=== PATIENT | female | born 1940 | race Two or more races ===

== ENCOUNTER → 2024-10-06 | Outpatient (CLI) | payer MEDICARE, OTHER, SELFPAY ==
[2024-10-06 17:39] LABS: Basophils % (Auto) 0 % (0-2.5); Eosinophils # (Auto) 0.1 Thou/mm3 (0.0-0.5); Eosinophils % (Auto) 1 % (0-10); Hematocrit 32.2 % (36.0-46.0); Hemoglobin 11.1 g/dL (12.0-16.0); Immature Granulocytes % (Auto) 0 % (0-0); Immature Granulocytes Auto 0.01 Thou/mm3 (0.00-0.00); Lymphocytes # (Auto) 1.2 Thou/mm3 (1.0-4.8); Lymphocytes % (Auto) 27 % (10-50); Mean Corpuscular HGB Conc 34.5 g/dl (31.0-37.0); Mean Corpuscular Hemoglobin 31.3 pg (25.0-35.0); Mean Corpuscular Volume 91 fL (80-100); Monocytes # (Auto) 0.4 Thou/mm3 (0.0-0.8); Monocytes % (Auto) 8 % (0-12); Neutrophils # (Auto) 2.9 Thou/mm3 (1.8-7.7); Neutrophils % (Auto) 63 % (37-80); Nucleated Red Blood Cell % 0 /100 WBC (0); Platelet Count 178 Thou/mm3 (140-440); RDW Standard Deviation 43.6 fL (36.4-46.3); Red Blood Count 3.55 Miln/mm3 (4.00-5.20); White Blood Count 4.6 Thou/mm3 (3.6-11.0)
[2024-10-06 17:54] LABS: INR 1.1 (0.9-1.3); Partial Thromboplastin Time 28.8 Seconds (22.0-36.0); Prothrombin Time 11.5 Seconds (9.0-12.2)
[2024-10-06 17:57] LABS: Anion Gap 8 (7-16); BUN/Creatinine Ratio 17 Ratio (12-20); Blood Urea Nitrogen 15 mg/dL (9-23); Calcium 8.8 mg/dL (8.3-10.6); Carbon Dioxide 26.4 mMol/L (20.0-31.0); Chloride 99 mMol/L (98-107); Creatinine (Component) 0.9 mg/dL (0.6-1.3); Glucose 108 mg/dL (74-106); Osmolality,Calculated 268 (275-295); Potassium 3.6 mMol/L (3.4-5.1); Sodium 133 mMol/L (136-145); eGFR > 60 See Note
== END | disposition home or self-care (01) ==
PROVIDERS: PCP Internal Medicine; Referring Provider Internal Medicine; Visit Provider Internal Medicine
DX: I25.10 Atherosclerotic heart disease of native coronary artery without angina pectoris (principal); I48.91 Unspecified atrial fibrillation
CPT/HCPCS: 36415; 80048; 85025; 85610; 85730

== ENCOUNTER 2024-10-11 16:08 | Observation (INO) | payer MEDICARE, OTHER, SELFPAY ==
[2024-10-11 16:12] VITALS: BP 106/64; PULSE 70; RESP 18; TEMP 36.7; O2SAT 95
--- NOTE | 2024-10-11 16:42 | EDNOTE_ITS ---
ED General RME/HPI General Stated complaint: LIP HEMATOMA Time Seen by Provider: 10/11/24 16:29 Arrival date/time: 10/11/24 16:08 RME / HPI RME / HPI narrative: 84-year-old female patient with significant history of hypertension was sent to us by Dr. Bourgeois, home demonstrator, for possible admission regarding left groin hematoma after patient underwent angiogram 9:00 this morning. Patient was also noted to be hypotensive while in the facility. Patient denies any pain. Denies any chest pain. Denies any other complaints. Patient is not taking any blood thinner. Review of Systems Review of Systems Narrative Review of Systems: Review of system reviewed and within normal limits except mentioned in HPI ED Exam Narrative Physical exam: VITAL SIGNS: Reviewed. GENERAL APPEARANCE: Alert and interactive, follows commands, no acute distress, HEAD AND FACE: Non-traumatic. ENT: PERRL, pink conjunctivitis, eyelid no trauma, Mucous membrane moist. NECK: Supple, nontender, no nuchal rigidity. CHEST: No tenderness, no crepitus, no paradoxical movement, no retractions. LUNGS: Clear, well ventilated, symmetric, no rales, no wheezing, no ronchi, no stridor, good breath sounds bilaterally. HEART: Regular rate, regular rhythm, no murmur, no gallops. ABDOMEN: Soft, positive bowel sounds, nondistended, no guarding, nontender, no rebound, no masses, RECTAL: Deferred. GENITAL: Deferred. NEUROLOGICAL: Gross motor function intact sensory function intact, Appropriate for age. MUSCULOSKELETAL: low back nontender, full range of motion. EXTREMITIES: Left groin hematoma, diffuse hematoma, swelling, nontender, full range of motion. SKIN: Color pink, dry, no rash, no lacerations, no abrasions, no contusions. LYMPHATICS: Deferred. Course Quality Measures none Orders Category Date Time Status COVID-19 Screening Questionnaire NOW Care 10/11/24 17:10 Active Decision to Admit X1 Care 10/11/24 17:10 Active Consult to Cardiology Stat Cons 10/11/24 17:11 Ordered CBC [CBC] Stat Lab 10/11/24 16:41 Ordered CMP [Comprehensive Metabolic Panel] Stat Lab 10/11/24 16:41 Ordered PT [Prothrombin Time with INR] Stat Lab 10/11/24 16:41 Ordered PTT [Partial Thromboplastin Time] Stat Lab 10/11/24 16:41 Ordered Vital Signs Vital signs: Vital Signs Temperature 98.0 F 10/11/24 16:12 Pulse Rate 70 10/11/24 16:12 Respiratory Rate 18 10/11/24 16:12 Blood Pressure 106/64 10/11/24 16:12 Pulse Oximetry (%) 95 10/11/24 16:12 Oxygen Delivery Method Room Air 10/11/24 16:12 MDM Patient data External records reviewed:: None Clinical information provided by:: patient Social determinants that could affect healthcare access:: none Patient has the following chronic illnesses:: Hypertension How is presenting disease/condition affected by chronic disease/condition?: exacerbated by Evaluation data The following diagnostics were reviewed and interpreted by me:: lab results Lab and/or radiology exams considered but not ordered:: None Interpretation Summary: Laboratory workup came back unremarkable. Medications Medications considered but not ordered:: none Medication administrations:: None Consultations Consultation(s) initiated? (list below): No Diagnosis Differential Diagnosis ED Complaint MDM: Left groin hematoma status post angiogram, anemia Most likely diagnosis given after review of the tests above:: Left groin hematoma, status post lateral Admission Indicated Admission indicated?: indicated Explain why admission is indicated or not indicated:: Stable Admission Request Was there a request for admission?: Yes Admission Attestation Admission request attestation: Discussed case with [ Dr Olivares] from Hospitalist service regarding admission. Discussed patients ED course, exam findings, labs, and radiology results. The Hospitalist [agrees] to accept the patient for admission. Disposition Plan Disposition Plan: Admit Medical Decision Making MDM Narrative MDM Narrative: 84-year-old female patient with significant history of hypertension was sent to us by Dr. Bourgeois, home demonstrator, for possible admission regarding left groin hematoma after patient underwent angiogram 9:00 this morning. Patient was also noted to be hypotensive while in the facility. Patient denies any pain. Denies any chest pain. Denies any other complaints. Patient is not taking any blood thinner. I spoke with Dr. Bourgeois, home demonstrator, and told me to asked the hospitalist admit the patient for observation regarding worsening left groin hematoma status post angiogram this morning. Was also noted to be hypotensive while in the facility. Differential Diagnosis Differential Diagnosis: Left groin hematoma status post angiogram, anemia Discharge Plan Plan Patient Disposition: Admit Acute Care w/in Hospital Problem List Clinical Impression: Hematoma of left inguinal region, Status post coronary angiogram Patient/Caregiver Discharge Instructions Print Language: Qatari Stand Alone Forms: Salma Award Info., Patient Portal Info Letter
--- NOTE | 2024-10-11 17:21 | PD.IMCONS ---
HPI Consult Narrative History of present illness: 84 year old F with boarder line HTN / PVD pt had peripheral anigiorgam via the L femoral artery and interventions post pocedure she developed L groin hematoma hemostasis achieved with fem-stop pt was admitted for observation cc:: cc: Exam Vital Signs Temp Pulse Resp BP Pulse Ox O2 Del Method 98.0 F 70 18 106/64 95 Room Air 10/11/24 16:12 10/11/24 16:12 10/11/24 16:12 10/11/24 16:12 10/11/24 16:12 10/11/24 16:12 Narrative Exam L gron has soft hematoma no active bleeding Assessment and Plan Assessment and plan (1) Hematoma of left inguinal region: Status: Acute (2) PVD (peripheral vascular disease): Status: Acute (3) Peripheral vascular angioplasty status: Status: Acute Additional Assessment & Plan Additional Plan: pt developed L groin hematoma currentyly hemodynamically stable hemostasis achieved with fem-stop will monitor H/H L groin u/s tomorrow
[2024-10-11 17:46] VITALS: BMI 26.7
--- NOTE | 2024-10-11 17:47 | ESHP_ITS ---
<Statement entered by Blanche Olivares MD - 10/13/24 05:26> Patient was seen and examined by me personally. I have directly supervised and reviewed documentation by the team resident and agree with its findings with any exceptions or additional findings as below. Plan of care was discussed with the attending, Dr. Medina. Patient is a 84-year-old female with past medical history of hypertension, hyperlipidemia, bladder prolapse status post pessary, history of hemoptysis who presents following left sided leg angiogram performed by Dr. Bourgeois. She developed a hematoma in the left groin post-procedure thus was sent by Dr. Bourgeois for admission for overnight observation. Will order US in the morning and follow Hgb level. If stable will plan to discharge tomorrow morning. Blanche Olivares, PGY-2 Documentation for date of: 10/11/24 HPI History of Present Illness Chief complaint: Hematoma s/p angiogram History of present illness: 84-year-old female with past medical history of hypertension, hyperlipidemia, bladder prolapse status post pessary, history of hemoptysis followed by civil litigation attorney Dr. Cervantes presenting to the ED after completing an angiogram for peripheral artery disease with Dr. Bourgeois. Patient apparently had a complication of hematoma formation after the angiogram procedure and Dr. Bourgeois is requesting that we admit the patient for observation and monitor hematoma along with patient's hemoglobin. Patient denies having any concerning symptoms at this time; moreover, no chest pain/tightness, abdominal pain, melena, hematochezia, dysuria, left extremity weakness or pain. Patient apparently was having difficulty ambulating at home but denies having any pain prior to having the angioplasty; moreover, Dr. Bourgeois had completed angioplasty a year prior on the right extremity without any complications. Patient also follows radiologist outpatient and apparently she does not have any reported cardiac disease. Regarding the hemoptysis, patient had 1 episode about a year ago and follows Dr. Cervantes. Patient's bedside states that she does have a pulmonary nodule that was believed to be potentially TB but that has been ruled out. Dr. Cervantes follows up with the patient and periodically repeats imaging for the pulmonary nodule Medical history: As stated above Surgical history: Molar tooth extraction, appendectomy 25 years ago Allergies: NKDA Medications: Patient is on atorvastatin (unsure exact dosage), was on hydrochlorothiazide 12.5 mg p.o. 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 ROS: All 12 systems assessed and the patient denies unless otherwise stated in HPI In the ED, patient is normotensive, regular heart rate, respiratory rate of 18 and afebrile satting 95 on room air. Pending labs which were ordered after decision was made to admit this patient. Patient will be admitted for observation to monitor for change in hemoglobin and to assess hematoma with ultrasound on the following day. Exam Vital Signs Temp Pulse Resp BP Pulse Ox O2 Del Method 98.0 F 70 18 106/64 95 Room Air 10/11/24 16:12 10/11/24 16:12 10/11/24 16:12 10/11/24 16:12 10/11/24 16:12 10/11/24 16:12 Narrative Exam Physical Exam: GENERAL: Awake, answering questions appropriately, appears stated age HEENT: NC/AT. Moist mucosa. PERRLA/EOMI. CARDIO: Heart RRR, no obvious murmurs, no JVD. PULM: No coughing or visible SOB. Lungs CTA B/L. GI: Abdomen soft, NT/ND, +BS. URO/BELT PICKER: +Howard catheter draining yellow urine (placed during the procedure; will remove on 10/12) SKIN/MSK/EXT: Left groin site bandaged with no oozing. No discoloration/rashes/edema/amputations. +Pedal pulses present B/L. NEURO: Oriented x3,Moves extremities x4, no focal neurologic deficits noted Results: Labs 10/12/24 04:45 10/12/24 04:45 Quality Measures Quality Measures none Advance care planning discussed with:: patient and spouse Medications Home Medications and Allergies Allergies Allergy/AdvReac Type Severity Reaction Status Date / Time codeine Allergy Severe Hives Verified 10/11/24 17:54 Visit Medications Acetaminophen (Acetaminophen 325 Mg Tablet) 650 mg PO Q6H PRN PRN Reason: Pain 1-3 and/or Fever >100.1 Stop: 11/10/24 17:40 Ondansetron HCl (Ondansetron Inj 2 Mg/Ml Inj 2 Ml) 4 mg IV Q6H PRN; Protocol PRN Reason: NAUSEA OR VOMITING Stop: 11/10/24 17:40 Sennosides (Senna Tablet) 1 tab PO QDAY PRN; Protocol PRN Reason: constipation Stop: 11/10/24 17:40 Assessment & Plan Plan 84-year-old female with past medical history of hypertension, hyperlipidemia, bladder prolapse status post pessary, history of hemoptysis followed by civil litigation attorney Dr. Cervantes presenting to the ED after completing an angiogram for peripheral artery disease with Dr. Bourgeois will be admitted for observation to monitor for change in hemoglobin and to assess hematoma with ultrasound on the following day. #Hematoma, secondary to angioplasty Patient is presenting after she had a scheduled angioplasty with Dr. Bourgeois on 9 AM Patient developed a left groin hematoma but hemostasis was achieved with Fem- Stop per Dr. Bourgeois's note On exam, patient is awake and in no distress; left groin hematoma site is not bleeding Dr. Bourgeois on board, appreciate recommendations Plan: Bedrest Monitor hemoglobin/hematocrit with morning labs Ultrasound L groin to monitor for the hematoma on 10/12 Tylenol for pain as needed Zofran for nausea as needed #Hypertension #Hyperlipidemia #Bladder prolapse status post pessary #History of hemoptysis with pulmonary nodule Chronic medical conditions not pertinent to the following presentation Hospital Management: Lines: PIV, Howard Bowel: Senna as needed Diet: Regular GI prophylaxis: Not needed DVT prophylaxis: SCD Dispo: Will monitor hemoglobin and repeat ultrasound to recheck hematoma Code: Full Patient seen and assessed with attending Dr. Medina and senior resident Dr. Marshall Frederick, PGY-1 Attending Provider Attestation/Addendum Krista, Bianca Medina, DO, attest that I was physically present for the hernandez portions of the service and evaluated the patient with the resident and I reviewed and discussed the case with the resident and agree with the resident's findings and plans of care as documented above Patient is an 84-year-old female with past medical history of hypertension, hyperlipidemia, bladder prolapse, peripheral arterial disease who was brought to the ED after patient underwent an outpatient angiogram. She was noted to develop ecchymosis over her right proximal thigh concerning for hematoma versus pseudoaneurysm. It is requested by the radiologist to further observe patient overnight and monitor H&H. Patient does have some mild edema, ecchymosis and tenderness to palpation over the right inguinal region. Will karl the affected area and obtain an ultrasound arterial in a.m. to rule out pseudoaneurysm. Case was discussed with cardiology in the ED. Will admit patient to med/surge for further observation. If H&H is stable and no pseudoaneurysm found on ultrasound, plan for discharge in a.m.
[2024-10-11 17:55] VITALS: BP 138/73; PULSE 87; RESP 16; TEMP 36.8; O2SAT 100
[2024-10-11 18:17] LABS: Basophils % (Auto) 0 % (0-2.5); Eosinophils # (Auto) 0.1 Thou/mm3 (0.0-0.5); Eosinophils % (Auto) 1 % (0-10); Hematocrit 26.4 % (36.0-46.0); Immature Granulocytes % (Auto) 0 % (0-0); Immature Granulocytes Auto 0.02 Thou/mm3 (0.00-0.00); Lymphocytes # (Auto) 1.2 Thou/mm3 (1.0-4.8); Lymphocytes % (Auto) 22 % (10-50); Mean Corpuscular HGB Conc 34.1 g/dl (31.0-37.0); Mean Corpuscular Volume 91 fL (80-100); Monocytes # (Auto) 0.6 Thou/mm3 (0.0-0.8); Monocytes % (Auto) 11 % (0-12); Neutrophils # (Auto) 3.7 Thou/mm3 (1.8-7.7); Neutrophils % (Auto) 66 % (37-80); Nucleated Red Blood Cell % 0 /100 WBC (0); Platelet Count 157 Thou/mm3 (140-440); RDW Standard Deviation 44.2 fL (36.4-46.3); White Blood Count 5.6 Thou/mm3 (3.6-11.0)
[2024-10-11 18:31] VITALS: BP 113/59; PULSE 66; RESP 18; TEMP 36.8; O2SAT 96
[2024-10-11 18:38] LABS: Alanine Aminotransferase 11 U/L (10-49); Albumin, Serum 3.4 gm/dL (3.4-4.8); Albumin/Globulin Ratio 1.4 (1.2-2.2); Alkaline Phosphatase 53 U/L (46-116); Anion Gap 7 (7-16); Aspartate Amino Transferase 20 U/L (0-34); BUN/Creatinine Ratio 21 Ratio (12-20); Bilirubin,Total 0.6 mg/dL (0.3-1.2); Blood Urea Nitrogen 15 mg/dL (9-23); Calcium 8.3 mg/dL (8.3-10.6); Calcium (Corrected) 8.8 mg/dL (8.5-10.1); Carbon Dioxide 24.4 mMol/L (20.0-31.0); Chloride 108 mMol/L (98-107); Creatinine (Component) 0.7 mg/dL (0.6-1.3); Globulin 2.4 gm/dL (2.3-3.5); Glucose 95 mg/dL (74-106); Osmolality,Calculated 278 (275-295); Potassium 3.5 mMol/L (3.4-5.1); Sodium 139 mMol/L (136-145); Total Protein 5.8 gm/dL (5.7-8.2); eGFR > 60 See Note
[2024-10-11 18:41] LABS: INR 1.1 (0.9-1.3); Partial Thromboplastin Time 27.1 Seconds (22.0-36.0); Prothrombin Time 11.5 Seconds (9.0-12.2)
[2024-10-11 21:00] VITALS: BP 130/72; PULSE 67; RESP 12; O2SAT 100
--- NOTE | 2024-10-11 21:08 | PC.NURSE ---
Pt provided with sandwich, juice, crackers. Tolerated well. Lights dimmed for pt comfort. Pt denies any pain or other complaints/concerns at this time.
[2024-10-11 23:13] VITALS: BMI 29.6
[2024-10-11] MEDS: ACETAMINOPHEN 325 MG TABLET 650 MG PO (23:36)
[2024-10-12] VITALS: BP 112/71; PULSE 70; RESP 16; TEMP 36.4; O2SAT 96
[2024-10-12 04:00] VITALS: BP 141/74; PULSE 68; RESP 19; TEMP 36.2; O2SAT 98
[2024-10-12 06:00] LABS: Basophils % (Auto) 0 % (0-2.5); Eosinophils # (Auto) 0.1 Thou/mm3 (0.0-0.5); Eosinophils % (Auto) 2 % (0-10); Hematocrit 25.2 % (36.0-46.0); Immature Granulocytes % (Auto) 0 % (0-0); Immature Granulocytes Auto 0.01 Thou/mm3 (0.00-0.00); Lymphocytes # (Auto) 1.2 Thou/mm3 (1.0-4.8); Lymphocytes % (Auto) 24 % (10-50); Mean Corpuscular HGB Conc 34.5 g/dl (31.0-37.0); Mean Corpuscular Hemoglobin 31.5 pg (25.0-35.0); Mean Corpuscular Volume 91 fL (80-100); Monocytes # (Auto) 0.5 Thou/mm3 (0.0-0.8); Monocytes % (Auto) 10 % (0-12); Neutrophils # (Auto) 3.2 Thou/mm3 (1.8-7.7); Neutrophils % (Auto) 64 % (37-80); Nucleated Red Blood Cell % 0 /100 WBC (0); Platelet Count 151 Thou/mm3 (140-440); RDW Standard Deviation 45.1 fL (36.4-46.3); Red Blood Count 2.76 Miln/mm3 (4.00-5.20)
[2024-10-12 06:09] LABS: Hemoglobin 8.7 g/dL (12.0-16.0)
--- NOTE | 2024-10-12 07:00 | XR_ITS ---
Examination: Arterial duplex lower extremity study, left leg Date and time of exam: October 12, 2024 0756 hours INDICATIONS: Bruising redness swelling and pain post angiogram yesterday Findings: Duplex sonographic imaging of the lower extremity arteries using B-mode/Abreu scale imaging and Doppler spectral analysis and color flow. Ankle brachial indices have been recorded. Left common femoral artery demonstrates triphasic flow. Left superficial femoral artery demonstrates biphasic flow. Left popliteal artery demonstrates biphasic flow. Left posterior tibial artery demonstrated biphasic flow. Left ankle/brachial index is 1.1. Impression: No significant peripheral obstructive arterial disease No hematoma or pseudoaneurysm demonstrated
[2024-10-12 07:04] LABS: Alanine Aminotransferase 8 U/L (10-49); Albumin, Serum 3.2 gm/dL (3.4-4.8); Albumin/Globulin Ratio 1.5 (1.2-2.2); Alkaline Phosphatase 53 U/L (46-116); Anion Gap 6 (7-16); Aspartate Amino Transferase < 10 U/L (0-34); BUN/Creatinine Ratio 29 Ratio (12-20); Bilirubin,Total 0.5 mg/dL (0.3-1.2); Blood Urea Nitrogen 20 mg/dL (9-23); Calcium (Corrected) 8.6 mg/dL (8.5-10.1); Carbon Dioxide 24.7 mMol/L (20.0-31.0); Chloride 107 mMol/L (98-107); Creatinine (Component) 0.7 mg/dL (0.6-1.3); Estimated Creatinine Clearance 53.6 mL/min (>60); Globulin 2.2 gm/dL (2.3-3.5); Glucose 94 mg/dL (74-106); Osmolality,Calculated 278 (275-295); Potassium 4.4 mMol/L (3.4-5.1); Sodium 138 mMol/L (136-145); Total Protein 5.4 gm/dL (5.7-8.2); eGFR > 60 See Note
[2024-10-12 08:00] VITALS: BP 122/65; PULSE 73; RESP 16; TEMP 36.6; O2SAT 97
[2024-10-12 12:00] VITALS: BP 149/75; PULSE 72; RESP 17; TEMP 36.4; O2SAT 98
--- NOTE | 2024-10-12 13:26 | ESDS_ITS ---
<Statement entered by Bianca Medina DO - 10/13/24 12:10> I, Bianca Medina DO, attest that I was physically present for the hernandez portions of the service and evaluated the patient with the resident and I reviewed and discussed the case with the resident and agree with the resident's findings and plans of care as documented above <Statement entered by Blanche Olivares MD - 10/13/24 10:04> Patient was seen and examined by me personally. I have reviewed the below documentation by the team resident and agree with its findings with any exceptions as below. Discharge plan was discussed with the attending, Dr. Medina. US of the left groin showed no aneurysm or hematoma, and Hgb level remained stable. Discussed with Dr. Bourgeois, patient will follow up with him in 1-2 weeks. Patient was safely discharged home. Blanche Olivares PGY-2 Planned Discharge Date 10/12/24 DS: Providers Provider Date of admission: 10/11/24 17:41 Primary care physician: Physician No Primary/Family Admitting Provider: Bianca Medina DO Attending Provider on Admission: Bianca Medina DO Consults: 10/11/24 17:11 Consult to Cardiology Stat Comment: Left groin hematoma status post angiogram Consulting Provider: William Bourgeois Attending Provider on DC: Fitz Frederick MD Discharging Provider: Fitz Frederick MD DS: Diagnosis Problem List Completed Was Problem List Reviewed/Reconciled?: Yes Hospital Course Hospital Course Hospital course: 84-year-old female with past medical history of hypertension, hyperlipidemia, bladder prolapse status post pessary, history of hemoptysis followed by supervisor melt house Dr. Cervantes presenting to the ED after completing an angiogram for peripheral artery disease with Dr. Bourgeois. Patient was admitted for observation and to monitor hemoglobin along with repeat ultrasound of the left groin duplex artery. Results from the ultrasound showed no signs of aneurysm or hematoma; moreover, the patient's hemoglobin was also stable on repeat labs. Dr. Bourgeois was informed regarding these findings and he is in agreement that the patient is stable for discharge. Dr. Bourgeois is requesting that the patient follow-up with him within the next 1 to 2 weeks. Patient will be discharged in stable condition with the following strict instructions. Continue taking all your home medications as prescribed Please follow-up with Dr. Bourgeois within 1-2 weeks Please follow-up with your PCP within 1-2 weeks If your symptoms worsen or if you develop new chest pain, shortness of breath, dizziness or severe leg pain - please come back to the ED immediately. Hospital Diagnosis: #Hematoma, secondary to angioplasty #Hypertension #Hyperlipidemia #Bladder prolapse status post pessary #History of hemoptysis with pulmonary nodule Fitz Frederick, PGY-1 Status at Discharge Overall status at discharge: patient is progressing back to baseline Time Spent with Patient Time attestation: Total time spent providing and/or coordinating discharge services: 45 minutes Time spent: Greater than 30 minutes Exam Vital Signs Temp Pulse Resp BP Pulse Ox O2 Del Method 97.2 F 68 19 141/74 H 98 Room Air 10/12/24 04:00 10/12/24 04:00 10/12/24 04:00 10/12/24 04:00 10/12/24 04:00 10/12/24 04:00 Narrative Exam Physical Exam: GENERAL: Awake, answering questions appropriately, appears stated age HEENT: NC/AT. Moist mucosa. PERRLA/EOMI. CARDIO: Heart RRR, no obvious murmurs, no JVD. PULM: No coughing or visible SOB. Lungs CTA B/L. GI: Abdomen soft, NT/ND, +BS. SKIN/MSK/EXT: Left groin site bandaged with no oozing. No discoloration/rashes/edema/amputations. +Pedal pulses present B/L. NEURO: Oriented x3,Moves extremities x4, no focal neurologic deficits noted Discharge Plan Plan Patient Disposition: HOME (Self Care) Patient condition on transfer: Stable Care Plan Goals: Continue taking all your home medications as prescribed Please follow-up with Dr. Bourgeois within 1-2 weeks Please follow-up with your PCP within 1-2 weeks If your symptoms worsen or if you develop new chest pain, shortness of breath, dizziness or severe leg pain - please come back to the ED immediately. Prescriptions/Referrals Referrals: No Primary/Family,Physician [Primary Care Provider] - William Bourgeois MD [Physician] - Patient/Caregiver Discharge Instructions Education Materials: PAD Dc, PAD Walking Program Print Language: French Stand Alone Forms: Salma Award Info., Patient Portal Info Letter Discharge Order Discharge Orders: Discharge (Routine); Ordered 10/12/24 Ordered By: Fitz Frederick Quality Discharge Quality Measures VTE prophylaxis
== END 2024-10-12 15:35 | disposition home or self-care (01) ==
LOC: SERX 18:04 → S3SX 10-12 06:51 → SERHOLD 10-16 05:55
PROVIDERS: Nurse Practitioner Family; Admitting Provider Internal Medicine; Emergency Provider Family Medicine; Visit Provider Internal Medicine
DX: I97.630 Postprocedural hematoma of a circulatory system organ or structure following a cardiac catheterization (principal); I10 Essential (primary) hypertension; E78.5 Hyperlipidemia, unspecified; Y84.8 Other medical procedures as the cause of abnormal reaction of the patient, or of later complication, without mention of misadventure at the time of the procedure; R91.1 Solitary pulmonary nodule; I73.9 Peripheral vascular disease, unspecified
CPT/HCPCS: 36415; 80053; 85025; 85610; 85730; 93926; 99285; G0378; A9270

== ENCOUNTER 2025-06-18 08:56 | Outpatient (AMB) | payer MEDICARE, OTHER, SELFPAY ==
[2025-06-18 09:31] VITALS: BP 139/83; PULSE 65; RESP 14; TEMP 36.2; O2SAT 98; BMI 27.0
--- NOTE | 2025-06-18 09:31 | AMB.GYNCLNOT ---
Vital Signs 06/18/25 09:31 Height 1.52 m Height Method Stated Weight 62.709 kg Weight Measurement Method Standing Scale BMI 27.0 BP 139/83 H Blood Pressure Source Automatic Cuff Blood Pressure Location Left Upper Arm Position Sitting Respiration 14 Pulse 65 Pulse Source Monitor Temp 97.2 F Temp Source Oral Pulse Oximetry (%) 98 Oxygen Delivery Method Room Air Allergies/Home Meds Allergies & Medications Allergies codeine Allergy (Severe, Verified 06/18/25 09:44) Hives omeprazole Allergy (Verified 06/18/25 09:44) Hives Medication Reconciliation No Known Home Medications 06/18/25 [History Confirmed 06/18/25] Intake Visit Data Collection New Patient or Established: Established Patient (seen at 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 History Menstrual regularity: regular Monthly: Yes Age at menarche: 14 Menopausal: Yes If menopausal, at what age did it occur: 58 Currently sexually active: No If not currently sexually active, have you ever been sexually active: Yes Additional comments: 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 / [facility] Questionnaires Covid-19 Vaccine Questionnaire Has patient been vacinated for Covid-19 Have you been vacinated for Covid-19: Yes PHQ-9 PHQ-2 Over the last 2 weeks, how often have you been bothered by any of the following problems? 1. Little interest or pleasure in doing things: not at all 2. Feeling down, depressed, or hopeless: not at all Total score: 0 PHQ-9 3. Trouble falling or staying asleep, or sleeping too much: Not at all 4. Feeling tired or having little energy: Not at all 5. Poor appetite or overeating: Not at all 6. Feeling bad about yourself - or that you are a failure or have let yourself or your family down: Not at all 7. Trouble concentrating on things, such as reading the newspaper or watching television: Not at all 8. Moving or speaking so slowly that other people could have noticed? - Or the opposite - being so fidgety or restless that you have been moving around a lot more than usual: not at all 9. Thoughts that you would be better off or of hurting yourself in some way: Not at all Total score: 0 Source: Developed by Drs. Addison Marsh, Xochitl Rodriguez, Bubba Leo and colleagues, with an educational ash from [employer]. Depression screen completed yes Social History Living Situation History Marital Status: Lives With: Family Housing: House Tobacco History Smoking Status: Never smoker Second Hand Smoke Exposure: No Alcohol History Alcohol Intake: Never Substance Use History Substance Use: never Domestic Abuse History Do You Feel Safe at Home: Yes History of Present Illness HPI Narrative 85 years old P4 with grade 2 cystocele and also uterine decsent grade 2 and uses a gelhorn pessary size 2 with a short stem / here for pessary chack up no vaginal bleeding or discharge / without the pessary she leaks waymore Review of Systems Review of Systems Systems Reviewed: All systems reviewed, normal except as documented Exam Narrative Physical exam: Alert and oriented x 3 no shortness of breath Pain no chest pain no palpitations CVS regular rate and rhythm No CVAT Abdomen nontender, normal bowel sounds No guarding no rigidity No hernias Pelvic exam shows a mod cystocele, vaginal atrophy and cervix descent to grade 2 Gelhorn removed and rinsed , vaginal and cervical inspecion negative / betadine prep of the vaginal area done and pessary replaced in follow up in 4 months or prn in September 2025 Office Procedures [facility] LOC & Office Proc's Nursing/Assessment Patient Status: Established Patient OB Clinic Nursing Assessment: Medication Reconciliation, Update PMH in EMR and Vital Signs OB Clinic Coordination of Care: Complex Care and Chronic Disease 1-5, Consent,records obtained, informed consent, Education Simp Pt/Fam, 1 Ins Authorization, Lab and Imaging orders, Results/Orders obtained and Staff clarify orders Established Patient Charge Established Patient Point Assignment: 120 Established Patient Point Charge: EP Level 4 (120-155) Assessment & Plan Diagnosis / Problem List (1) Cystocele with second degree uterine prolapse: Status: Acute Assessment and Plan: gelhorn size 2 with short stem pessary removed, rinsed and placed back in (2) Vaginal atrophy: Status: Acute Assessment and Plan: patient on vaginal estradiol 10 mcg inserts Additional Plan Follow Up: 3 to 4 months Advanced Care Planning Advance care planning discussed with:: patient
== END 2025-06-18 10:12 | disposition home or self-care (01) ==
LOC: HODSOBC 08:56
PROVIDERS: PCP Internal Medicine; Referring Provider Internal Medicine; Supervising Provider Obstetrics & Gynecology; Visit Provider Obstetrics & Gynecology
DX: N81.2 Incomplete uterovaginal prolapse (principal); N95.2 Postmenopausal atrophic vaginitis; I10 Essential (primary) hypertension; E78.00 Pure hypercholesterolemia, unspecified; M81.0 Age-related osteoporosis without current pathological fracture; Z88.5 Allergy status to narcotic agent; Z88.8 Allergy status to other drugs, medicaments and biological substances
CPT/HCPCS: 99214; G0463